=== PATIENT | female | born 1945 | race Two or more races ===

== ENCOUNTER 2017-09-28 11:37 | Emergency (ER) | payer OTHER ==
[~2017-09-28] VITALS: Ht 167.6 cm; Wt 83.9 kg
[2017-09-28] MEDS ORDERED: IBUPROFEN800 MG PO (14:59)
== END 2017-09-28 15:59 | disposition home or self-care (01) ==
LOC: ER 11:37
DX: S20.222A Contusion of left back wall of thorax, initial encounter (principal); W22.8XXA Striking against or struck by other objects, initial encounter; Y93.89 Activity, other specified; Y92.59 Other trade areas as the place of occurrence of the external cause; Y99.8 Other external cause status